=== PATIENT | male | born 1940 | race Caucasian/White ===

== ENCOUNTER 2016-06-21 11:39 | Day surgery (SDC) | payer MEDICARE, OTHER ==
[~2016-06-21] VITALS: Ht 170.2 cm; Wt 97.7 kg
--- NOTE | 2016-06-21 15:05 | HP ---
ADMIT: 06/21/2016 RM/LOC: [facility] MR#: [id number] [address] SHIV[address] [place] [address] [place] [address] Pre-OP History and Physical SEX: M AGE: 75 : 1940 DATE OF SERVICE: CHIEF COMPLAINT: Left elbow pain. HISTORY OF PRESENT ILLNESS: The patient is a 75-year-old white male who slipped last week. He pressed against a gate and felt a pop in his arm. He had pain and weakness with extension. PAST MEDICAL HISTORY: Significant for pacemaker, hypertension, sleep apnea, shoulder pain, and carpal tunnel release. MEDICATIONS: 1. Amlodipine. 2. Metoprolol. 3. Hydrochlorothiazide. 4. Prilosec. ALLERGIES: PENICILLIN. SOCIAL HISTORY: The patient is a former smoker. Does not regularly drink alcohol. PHYSICAL EXAMINATION: HEENT: Normocephalic and atraumatic. CV: Regular rate and rhythm. LUNGS: Benign. ABDOMEN: Benign. NEUROLOGIC: Alert and oriented x3. MUSCULOSKELETAL: Shows the patient has full extension of elbow, 145 degrees of flexion, 90 degrees of pronation, 90 degrees supination. Weakness with extension. There is defect proximal to his olecranon consistent with a ADMIT: 06/21/2016 RM/LOC: [facility] MR#: [id number] [address] SHIV[address] [place] [address] [place] [address] Pre-OP History and Physical SEX: M AGE: 75 : 1940 triceps tendon rupture. X-rays of the left elbow show small liz of bone on the distal aspect of the paper rewinder compartment of his left upper arm consistent with small avulsion from the olecranon. This is about 3 cm proximal to the olecranon. ASSESSMENT AND PLAN: Left triceps tendon rupture. At this point in time, the best thing to do is proceed with a left triceps tendon repair. The patient and the patient's HP understands risks and benefits of surgical intervention and desires to proceed. He will see his medical doctor for preoperative medical clearance. Please refer to that H and P for any in-depth medical issues or medication changes. Ezekiel Edwards MD/ dalia JOB #: [id number] CC: Ezekiel Edwards, Attending Physician Rio Canales, Family Physician
--- NOTE | 2016-06-28 15:26 | OR ---
ADMIT: 06/21/2016 RM/LOC: [facility] MR#: [id number] [id number] [address] [address]IV[address] [place] [address] [place] [address] Operative/Delivery Room Report SEX: M AGE: 75 : 1940 SURGERY DATE: 06/21/2016 SURGEON: Ezekiel Edwards MD PREOPERATIVE DIAGNOSIS: Left elbow triceps tendon rupture. POSTOPERATIVE DIAGNOSIS: Left elbow triceps tendon rupture. PROCEDURE PERFORMED: Left elbow triceps tendon repair. FIELD EDUCATION DIRECTOR: Chang Rosario PA-C. ANESTHESIA: Regional, supraclavicular. ESTIMATED BLOOD LOSS: Minimal. FLUIDS: Per anesthetic record. COMPLICATIONS: No complications. DRAINS: No drains. TOURNIQUET TIME: 29 minutes. CONDITION ON DISCHARGE: The patient returned to the recovery room in fair condition. INDICATION: The patient sustained a left triceps tendon rupture last week. He desires surgical intervention. He understood the risks and benefits of the procedure and desired to proceed with the operation. PROCEDURE IN DETAIL: The patient was placed in the recovery room area. He was then brought to the OR and transferred to the OR table in supine position. All bony prominences were well padded. Left upper extremity was prepped and draped in the usual sterile fashion. We placed a well-padded sterile tourniquet on the patient. Exsanguinated the left upper extremity and put the tourniquet up to 250 mmHg. A 4 to 5 inch incision was made over the olecranon, slightly lateral to the tip and then carried proximal and slightly distally through the skin and subcutaneous tissue. Deep fascia was then opened proximally, his triceps retracted proximally. Thoroughly irrigated this area out. Freed his triceps of any adhesions, which already had started scarring it down. I was able to mobilize it nicely. I used a bur and roughened up the tip of the olecranon and made a small little trough into the posterior aspect of the olecranon and drilled 3 holes from posterior on the olecranon to the subcutaneous surface on the other side of the olecranon staying out of the joint. I then placed two #5 Ethibond sutures in a ADMIT: 06/21/2016 RM/LOC: [facility] MR#: [id number] [address] [address] [place]IV[place] [address] [place] [address] Operative/Delivery Room Report SEX: M AGE: 75 : 1940 fashion triceps tendon rupture giving me 4 tails of Ethibond that exited distally, cut the needles off, and I brought the 4 sutures through the 3 holes and tied the sutures over bony bridges recreating the footprint nicely. I cut the free tails. Wound was thoroughly irrigated with bacitracin solution. I reinforced repair using #1 Vicryl. Subcutaneous tissue was closed using 2-0 Vicryl. Skin closed using annie. Prior to closure, I was able to flex his elbow up almost 90 degrees without any undue tension on the repair. I dressed this wound with Adaptic 4x4s, ABD, Webril, and placed in a well-padded fiberglass splint which was posterior secured with the elbow at approximately 60 degrees of flexion and secured it with 2 Ap wraps and placed him in a sling. The tourniquet had been let down and removed, and he was transferred back to the recovery room in fair condition. Ezekiel Edwards MD/ dalia JOB #: [id number] CC: Ezekiel Edwards, Attending Physician Rio Canales, Family Physician
== END 2016-06-21 17:01 | disposition home or self-care (01) ==
LOC: SSS 11:39
PROC: 0LQ40ZZ Repair Left Upper Arm Tendon, Open Approach (ICD-10-PCS; principal; 2016-06-21)
DX: S46.312A Strain of muscle, fascia and tendon of triceps, left arm, initial encounter (principal); K21.9 Gastro-esophageal reflux disease without esophagitis; I10 Essential (primary) hypertension; G47.30 Sleep apnea, unspecified; Z99.89 Dependence on other enabling machines and devices; Z90.49 Acquired absence of other specified parts of digestive tract; Z98.890 Other specified postprocedural states; Z88.0 Allergy status to penicillin; Z79.899 Other long term (current) drug therapy; Z95.0 Presence of cardiac pacemaker; Z87.891 Personal history of nicotine dependence; W01.0XXA Fall on same level from slipping, tripping and stumbling without subsequent striking against object, initial encounter